=== PATIENT | male | born 1960 | race Hispanic/Latino ===

== ENCOUNTER → 2019-09-17 | Outpatient (CLI) | payer SELFPAY ==
[~2019-09-17] MED LIST: GADODIAMIDE 10 MMOL/20 ML VIAL IV ONE
== END | disposition home or self-care (01) ==
LOC: RAH 10:33
PROVIDERS: ATTEND Family Medicine
DX: J34.1 Cyst and mucocele of nose and nasal sinus (principal); H02.403 Unspecified ptosis of bilateral eyelids; R20.2 Paresthesia of skin
CPT/HCPCS: 70553; A9579

== ENCOUNTER → 2019-11-05 | Outpatient (CLI) | payer SELFPAY | END | disposition home or self-care (01) | LOC: RAH 13:23 | PROVIDERS: ATTEND Psychiatry & Neurology Neurology | DX: H05.3 Deformity of orbit (principal); G51.31 Clonic hemifacial spasm, right; H02.402 Unspecified ptosis of left eyelid | CPT/HCPCS: 70543 ==

== ENCOUNTER → 2020-03-21 | Outpatient (CLI) | payer OTHER | END | disposition home or self-care (01) | LOC: OIH 13:21 | PROVIDERS: ATTEND Internal Medicine Cardiovascular Disease | DX: Z13.6 Encounter for screening for cardiovascular disorders (principal) | CPT/HCPCS: 75571 ==

== ENCOUNTER → 2021-07-04 | Outpatient (CLI) | payer OTHER | END | disposition home or self-care (01) | LOC: SHCH 11:04 | PROVIDERS: ATTEND Internal Medicine Cardiovascular Disease | DX: I51.7 Cardiomegaly (principal) | CPT/HCPCS: 93306; 93356 ==

== ENCOUNTER → 2024-12-31 | Outpatient (CLI) | payer OTHER ==
[2024-12-31 22:17] VITALS: PULSE 44; RESP 12
[2024-12-31 23:00] VITALS: PULSE 48; RESP 16
[2024-12-31 23:30] VITALS: PULSE 46; RESP 12
[2025-01-01] VITALS (9 sets, daily range): PULSE 40–48; RESP 8–16
== END | disposition home or self-care (01) ==
LOC: SLP 20:03
PROVIDERS: ATTEND Family Medicine
DX: G47.33 Obstructive sleep apnea (adult) (pediatric) (principal); R06.83 Snoring; R00.1 Bradycardia, unspecified
CPT/HCPCS: 95810

== ENCOUNTER → 2025-03-06 | Outpatient (CLI) | payer OTHER ==
[~2025-03-06] MED LIST changes: -GADODIAMIDE 10 MMOL/20 ML VIAL IV ONE; +NEOSTIGMINE METHYLSULFATE 1MG/ML IV ONE
[2025-03-06 22:45] VITALS: PULSE 48; RESP 12
[2025-03-06 23:30] VITALS: PULSE 44; RESP 10
[2025-03-07] VITALS (9 sets, daily range): PULSE 38–42; RESP 8–12
== END | disposition home or self-care (01) ==
LOC: SLP 20:04
PROVIDERS: ATTEND Family Medicine
DX: G47.33 Obstructive sleep apnea (adult) (pediatric) (principal)
CPT/HCPCS: 95811